=== PATIENT | female | born 1950 | race African-American/Black ===

== ENCOUNTER 2018-11-29 04:57 | Inpatient (IN) | payer OTHER, MEDICAID ==
[~2018-11-29] VITALS: Ht 172.7 cm; Wt 78.0 kg
[2018-11-29] MEDS ORDERED: SODIUM CHLORIDE 0.9% 1,000 ML IV ONE (05:24)
[2018-11-29 05:56] LABS: BASOPHILS % 0.7 % (0.0-2.0); EOSINOPHILS % 2.3 % (0.0-5.0); HEMATOCRIT. 41.3 % (36.0-48.0); HEMOGLOBIN. 13.8 g/dL (12.0-16.0); LYMPHOCYTES % 26.5 % (20.0-50.0); MEAN CORPUSCULAR HEMOGLOBIN 26.7 pg (28.0-32.0); MEAN CORPUSCULAR VOLUME 79.9 fL (81.0-99.0); MEAN PLATELET VOLUME 8.7 fl (7.4-10.4); MONOCYTES % 6.2 % (2.0-8.0); NEUTROPHILS % 64.3 % (40.0-76.0); PLATELET 204 x1000/uL (130-400); RED BLOOD CELL COUNT 5.17 mill/uL (4.2-5.4); RED CELL DISTRIBUTION WIDTH 16.8 % (11.6-14.6)
[2018-11-29 06:06] LABS: CHLORIDE 108 mEq/L (98-107)
[2018-11-29 06:11] LABS: ETHANOL BLOOD < 10 mg/dL
[2018-11-29 06:25] LABS: *AMPHETAMINES SCREEN URINE NEGATIVE (NEGATIVE); *BARBITURATES SCREEN URINE NEGATIVE (NEGATIVE); *BENZODIAZEPINES SCREEN URINE NEGATIVE (NEGATIVE); *COCAINE SCREEN URINE NEGATIVE (NEGATIVE)
[2018-11-29 06:26] LABS: CANNABINOID URINE SCREEN NEGATIVE (NEGATIVE); METHADONE URINE SCREEN NEGATIVE (NEGATIVE); OPIATES URINE SCREEN NEGATIVE (NEGATIVE); PHENCYCLIDINE URINE SCREEN NEGATIVE (NEGATIVE)
[2018-11-29] MEDS ORDERED: DILTIAZEM HCL 5MG/ML 5ML VIAL IV ONE (06:30)
[2018-11-29 06:43] LABS: CREATINE KINASE 53 IU/L (26-192)
[2018-11-29 06:44] LABS: CREATINE KINASE MB FRACTION < 1.0 ng/mL (0.5-3.6); T4 FREE 1.12 ng/dL (0.76-1.46)
[2018-11-29] MEDS ORDERED: CLONIDINE 0.1MG TABLET PO PRN (10:30)
[2018-11-29] MEDS ORDERED: DEXTROSE 50% WATER 50ML SYRINGE IV PRN (10:30)
[2018-11-29] MEDS ORDERED: FAMO20TA8 PO (10:40)
[2018-11-29] MEDS ORDERED: GLIP5TAB12 PO (10:40)
[2018-11-29] MEDS ORDERED: NIFE60TA64 PO (10:40)
[2018-11-29] MEDS ORDERED: POTA8TAB8 PO (10:40)
[2018-11-29] MEDS ORDERED: BENA20TA10 PO (10:40)
[2018-11-29] MEDS ORDERED: ASPI-1393 PO (10:40)
[2018-11-29 11:53] VITALS: BP 170/23
[2018-11-29] MEDS: BLOOD SUGAR DIAGNOSTIC STRIP TEST SCH ×3 (12:41→21:24)
[2018-11-29 12:59] VITALS: BP 162/84
[2018-11-29] MEDS: ASPIRIN 81MG EC TABLET PO SCH (12:59)
[2018-11-29] MEDS: ENOXAPARIN 40MG/0.4ML SYR SUBCUT SCH (13:00)
[2018-11-29] MEDS: DILTIAZEM HCL 90MG TABLET PO SCH ×2 (13:00→21:34)
[2018-11-29] MEDS: INSULIN LISPRO 100 UNITS/ML SUBCUT SCH ×3 (13:01→21:37)
[2018-11-29 16:41] VITALS: BP 179/89
[2018-11-29 20:00] VITALS: BP 152/79
[2018-11-30 00:23] VITALS: BP 137/71
[2018-11-30 04:00] VITALS: BP 141/61
[2018-11-30] MEDS: DILTIAZEM HCL 90MG TABLET PO SCH (05:09)
[2018-11-30 07:19] LABS: BASOPHILS % 0.7 % (0.0-2.0); HEMOGLOBIN. 12.7 g/dL (12.0-16.0); LYMPHOCYTES % 25.9 % (20.0-50.0); MEAN CORPUSCULAR HEMOGLOBIN 26.1 pg (28.0-32.0); MEAN CORPUSCULAR VOLUME 79.9 fL (81.0-99.0); MEAN PLATELET VOLUME 9.3 fl (7.4-10.4); NEUTROPHILS % 63.4 % (40.0-76.0); PLATELET 184 x1000/uL (130-400); RED BLOOD CELL COUNT 4.88 mill/uL (4.2-5.4); RED CELL DISTRIBUTION WIDTH 16.5 % (11.6-14.6)
[2018-11-30 08:00] VITALS: BP 121/64
[2018-11-30] MEDS: BLOOD SUGAR DIAGNOSTIC STRIP TEST SCH ×4 (08:02→22:52)
[2018-11-30 08:13] LABS: CHLORIDE 109 mEq/L (98-107)
[2018-11-30] MEDS: ASPIRIN 81MG EC TABLET PO SCH (08:28)
[2018-11-30] MEDS: ENOXAPARIN 40MG/0.4ML SYR SUBCUT SCH (08:29)
[2018-11-30] MEDS: INSULIN LISPRO 100 UNITS/ML SUBCUT SCH ×4 (08:30→21:00)
[2018-11-30 12:00] VITALS: BP 154/64
[2018-11-30 16:00] VITALS: BP 142/68
[2018-11-30] MEDS: MAGNESIUM OXIDE 400MG TABLET PO SCH (16:22)
[2018-11-30] MEDS ORDERED: MAGNESIUM 2 G PREMIX 50 ML IV NR (17:00)
[2018-11-30] MEDS: DILTIAZEM HCL 30MG TABLET PO SCH (18:00)
[2018-11-30 20:00] VITALS: BP 148/72
[2018-12-01] VITALS (7 sets, daily range): BP systolic 130–164; BP diastolic 69–94
[2018-12-01] MEDS: DILTIAZEM HCL 30MG TABLET PO SCH ×3 (00:43→12:40)
[2018-12-01] MEDS: BLOOD SUGAR DIAGNOSTIC STRIP TEST SCH ×2 (06:54→12:22)
[2018-12-01] MEDS: MAGNESIUM OXIDE 400MG TABLET PO SCH (09:10)
[2018-12-01] MEDS: ASPIRIN 81MG EC TABLET PO SCH (09:10)
[2018-12-01] MEDS: ENOXAPARIN 40MG/0.4ML SYR SUBCUT SCH (09:11)
[2018-12-01] MEDS: INSULIN LISPRO 100 UNITS/ML SUBCUT SCH ×2 (09:18→12:22)
[2018-12-01 11:54] LABS: BASOPHILS % 0.5 % (0.0-2.0); EOSINOPHILS % 1.5 % (0.0-5.0); HEMATOCRIT. 39.5 % (36.0-48.0); HEMOGLOBIN. 13.2 g/dL (12.0-16.0); LYMPHOCYTES % 21.2 % (20.0-50.0); MEAN CORPUSCULAR HEMOGLOBIN 26.5 pg (28.0-32.0); MEAN CORPUSCULAR VOLUME 79.5 fL (81.0-99.0); MONOCYTES % 7.3 % (2.0-8.0); NEUTROPHILS % 69.5 % (40.0-76.0); PLATELET 179 x1000/uL (130-400); RED BLOOD CELL COUNT 4.97 mill/uL (4.2-5.4); RED CELL DISTRIBUTION WIDTH 16.6 % (11.6-14.6)
[2018-12-01 12:14] LABS: CHLORIDE 106 mEq/L (98-107)
== END 2018-12-01 15:11 | disposition home or self-care (01) | DRG 310 ==
LOC: ER 04:57 → EDBD 06:24 → 7WST 06:24 → EDBEDREQTM 06:27 → EDBEDREQ 06:27 → ENRESERV 07:04 → CANRESERV 07:04 → ENRESERV 08:34
PROVIDERS: ADMIT Internal Medicine; ATTEND Internal Medicine
DX: I48.0 Paroxysmal atrial fibrillation (principal); E11.9 Type 2 diabetes mellitus without complications; I11.9 Hypertensive heart disease without heart failure; I48.92 Unspecified atrial flutter; E83.42 Hypomagnesemia; J44.9 Chronic obstructive pulmonary disease, unspecified; K21.9 Gastro-esophageal reflux disease without esophagitis; R07.89 Other chest pain; F17.210 Nicotine dependence, cigarettes, uncomplicated; Z71.6 Tobacco abuse counseling; Z79.82 Long term (current) use of aspirin; Z79.899 Other long term (current) drug therapy; Z82.49 Family history of ischemic heart disease and other diseases of the circulatory system; Z83.3 Family history of diabetes mellitus
CPT/HCPCS: 36415; 71045; 80048; 80305; 80320; 82550; 82553; 82962; 83735; 83880; 84439; 84443; 84484; 93005; 93306; 96361; 96374; 99291; J1650; J1815; J3475; J3490; J7030; J7040; G0480